=== PATIENT | male | born 1975 | race Caucasian/White ===

== ENCOUNTER 2017-03-01 18:43 | Emergency (ER) | payer OTHER ==
[~2017-03-01] VITALS: Ht 170.2 cm; Wt 90.5 kg
[2017-03-01 18:45] VITALS: BP 135/91
[2017-03-02] MEDS ORDERED: SING10TA32 PO (07:12)
[2017-03-02] MEDS ORDERED: ZYRT10CA PO (07:12)
[2017-03-02] MEDS ORDERED: NEXI20CA PO (07:12)
[2017-03-02] MEDS ORDERED: LEVO750T13 PO (13:18)
== END 2017-03-01 18:56 | disposition left against medical advice (07) ==
LOC: M ED 18:43
DX: Z53.21 Procedure and treatment not carried out due to patient leaving prior to being seen by health care provider (principal)

== ENCOUNTER 2017-03-02 07:02 | Emergency (ER) | payer OTHER ==
[~2017-03-02] VITALS: Ht 170.2 cm; Wt 90.5 kg
[2017-03-02] MEDS ORDERED: NEXI20CA PO (07:12)
[2017-03-02] MEDS ORDERED: ZYRT10CA PO (07:12)
[2017-03-02] MEDS ORDERED: SING10TA32 PO (07:12)
[2017-03-02] MEDS ORDERED: MORPHINE 4 MG/ML 1ML SYRINGE IV PRN (08:00)
[2017-03-02] MEDS ORDERED: NS 1,000 ML IV ONE (08:00)
[2017-03-02] MEDS ORDERED: ONDANSETRON 4MG/2ML VIAL (J2405) IV ONE (08:00)
[2017-03-02 08:16] LABS: BASO % 0.2 % (0.0-1.0); EOS % 0.2 % (0.0-3.0); IMMATURE GRANULOCYTE % 0.3 % (0-0); LYMPH # 0.7 10^3/uL (1.5-4.5); LYMPH % 12.4 % (24.0-44.0); MEAN CORPUSCULAR HEMOGLOBIN 28.8 pg (27.0-33.0); MEAN CORPUSCULAR HGB CONC 34.4 g/dl (32.0-36.5); MEAN CORPUSCULAR VOLUME 83.7 fl (80.0-96.0); MONO # 0.6 10^3/uL (0.0-0.8); MONO % 10.5 % (0.0-5.0); NEUTROPHILS # 4.4 10^3/uL (1.8-7.7); NEUTROPHILS % 76.4 % (36.0-66.0); PLATELET COUNT, AUTOMATED 164 10^3/uL (150-450); RED CELL DISTRIBUTION WIDTH 12.2 % (11.5-14.5); WHITE BLOOD COUNT 5.8 10^3/uL (4.0-10.0)
[2017-03-02] MEDS ORDERED: GASTROGRAFIN SOLUTION 30ML PO ONE (08:25)
[2017-03-02] MEDS ORDERED: GASTROGRAFIN SOLUTION 30ML (Q9963) PO ONE (08:55)
[2017-03-02 09:24] LABS: ALBUMIN 3.5 GM/DL (3.2-5.2); ALBUMIN/GLOBULIN RATIO 1.06 (1.00-1.93); ALKALINE PHOSPHATASE 46 U/L (45-117); ALT/SGPT 102 U/L (12-78); ANION GAP 10 MEQ/L (8-16); AST/SGOT 47 U/L (15-37); BILIRUBIN,DIRECT 0.2 MG/DL (0.0-0.2); BILIRUBIN,TOTAL 0.6 MG/DL (0.2-1.0); BLOOD UREA NITROGEN 12 MG/DL (7-18); CALCIUM LEVEL 8.6 MG/DL (8.5-10.1); CARBON DIOXIDE LEVEL 25 MEQ/L (21-32); CHLORIDE LEVEL 105 MEQ/L (98-107); CREATININE FOR GFR 1.02 MG/DL (0.70-1.30); GLOMERULAR FILTRATION RATE > 60.0 (>60); GLUCOSE, FASTING 110 MG/DL (70-105); POTASSIUM SERUM 3.5 MEQ/L (3.5-5.1); SODIUM LEVEL 140 MEQ/L (136-145); TOTAL PROTEIN 6.8 GM/DL (6.4-8.2)
[2017-03-02] MEDS ORDERED: ISOVUE-370 76% 100ML VIAL (Q9967) As Ordered ONE (09:42)
[2017-03-02] MEDS ORDERED: ACETAMINOPHEN TAB 650MG DOSE (2X325MG) PO ONE (09:45)
--- NOTE | 2017-03-02 10:13 | REP ---
CT of the abdomen and pelvis with IV and oral contrast: Comparison is 02/17/2015. The visualized lung vitale are unremarkable. The hepatic parenchyma is hypodense compatible with hepato steatosis. The gallbladder, pancreas and spleen are unremarkable. The adrenals, kidneys and abdominal aorta are unremarkable. There is no bowel distension or obstruction. There is diffuse wall thickening of the entire colon compatible with colitis in the appropriate clinical setting. There is no ascites. Pelvis: The bladder is unremarkable. There are prostatic of this. The prostate is moderately enlarged. There is no adenopathy or ascites. Impression: Wall thickening of the entire colon compatible with colitis in the appropriate clinical setting. Otherwise, negative CT of the abdomen pelvis except for hepato steatosis. Signed by Faizan Salas MD 03/02/2017 10:04 A
[2017-03-02] MEDS ORDERED: LEVO750T13 PO (13:18)
[2017-03-02] MEDS ORDERED: IBUPROFEN 600 MG TAB PO ONE (13:30)
[2017-03-02] MEDS ORDERED: LevoFLOXacin 750 MG TABLET PO ONE (13:30)
[2017-03-02 13:34] VITALS: BP 132/87
== END 2017-03-02 13:35 | disposition home or self-care (01) ==
LOC: M ED 07:02
DX: A09 Infectious gastroenteritis and colitis, unspecified (principal); K21.9 Gastro-esophageal reflux disease without esophagitis; G47.30 Sleep apnea, unspecified; Z79.899 Other long term (current) drug therapy
CPT/HCPCS: 74177; 80048; 80076; 81001; 83690; 85025; 87086; 87507; 93041; 96361; 96374; 96375; 99284; J2405; Q9963; Q9967

== ENCOUNTER → 2019-06-05 | Outpatient (REF) | payer OTHER ==
[~2019-06-05] MED LIST: LEVO750T13 PO; NEXI20CA PO; SING10TA32 PO; ZYRT10CA PO
== END ==
LOC: M LAB REF 10:26
PROVIDERS: ATTEND Nurse Practitioner Adult Health
DX: I10 Essential (primary) hypertension (principal)

== ENCOUNTER → 2019-06-05 | Outpatient (CLI) | payer OTHER ==
[2019-06-05 19:05] LABS: HEMATOCRIT 45.9 % (42.0-52.0); MEAN CORPUSCULAR HEMOGLOBIN 28.3 pg (27.0-33.0); MEAN CORPUSCULAR HGB CONC 32.7 g/dl (32.0-36.5); MEAN CORPUSCULAR VOLUME 86.6 fl (80.0-96.0); PLATELET COUNT, AUTOMATED 264 10^3/uL (150-450); WHITE BLOOD COUNT 6.6 10^3/uL (4.0-10.0)
[2019-06-05 19:30] LABS: ALBUMIN 4.2 GM/DL (3.2-5.2); ALT/SGPT 73 U/L (12-78); BILIRUBIN,TOTAL 0.5 MG/DL (0.2-1.0); BLOOD UREA NITROGEN 14 MG/DL (7-18); CARBON DIOXIDE LEVEL 32 MEQ/L (21-32); CHLORIDE LEVEL 104 MEQ/L (98-107); GLOMERULAR FILTRATION RATE > 60.0 (>60); GLUCOSE, FASTING 81 MG/DL (70-100); POTASSIUM SERUM 4.3 MEQ/L (3.5-5.1); SODIUM LEVEL 140 MEQ/L (136-145); TOTAL PROTEIN 7.2 GM/DL (6.4-8.2)
== END ==
LOC: M WUC 15:16
PROVIDERS: ATTEND Nurse Practitioner Family
DX: R03.0 Elevated blood-pressure reading, without diagnosis of hypertension (principal); I10 Essential (primary) hypertension

== ENCOUNTER → 2021-08-27 | Outpatient (REF) | payer OTHER | LOC: M LAB REF 11:48 | PROVIDERS: ATTEND Physician Assistant Medical | DX: R05.9 Cough, unspecified (principal); R50.9 Fever, unspecified ==

== ENCOUNTER 2022-02-19 11:57 | Emergency (ER) | payer OTHER ==
[~2022-02-19] VITALS: Ht 170.2 cm; Wt 88.6 kg
[~2022-02-19 11:57] MED LIST changes: +LEVO1TAB40 PO; -LEVO750T13 PO
[2022-02-19 13:15] LABS: BASO % 0.3 % (0.0-1.0); EOS # 0.1 10^3/uL (0.0-0.5); EOS % 0.6 % (0.0-3.0); HEMATOCRIT 43.4 % (42.0-52.0); HEMOGLOBIN 14.8 g/dl (13.5-17.5); LYMPH # 1.3 10^3/uL (1.5-5.0); LYMPH % 13.5 % (24.0-44.0); MEAN CORPUSCULAR HEMOGLOBIN 29.1 pg (27.0-33.0); MEAN CORPUSCULAR HGB CONC 34.1 g/dl (32.0-36.5); MEAN CORPUSCULAR VOLUME 85.4 fl (80.0-96.0); MONO # 0.9 10^3/uL (0.0-0.8); MONO % 9.1 % (2.0-8.0); NEUTROPHILS # 7.2 10^3/uL (1.5-8.5); NEUTROPHILS % 76.2 % (36.0-66.0); PLATELET COUNT, AUTOMATED 235 10^3/uL (150-450); RED BLOOD COUNT 5.08 10^6/uL (4.30-6.10); WHITE BLOOD COUNT 9.4 10^3/uL (4.0-10.0)
[2022-02-19] MEDS ORDERED: LISI20TA33 PO (13:20)
[2022-02-19] MEDS ORDERED: HYDR12.55 PO (13:20)
[2022-02-19] MEDS ORDERED: MORPHINE 4 MG/ML 1ML VIAL/SYRINGE IV ONE (13:50)
[2022-02-19 13:55] LABS: BLOOD UREA NITROGEN 18 MG/DL (7-18); CARBON DIOXIDE LEVEL 25 MEQ/L (21-32); CHLORIDE LEVEL 104 MEQ/L (98-107); CREATININE FOR GFR 1.12 MG/DL (0.70-1.30); GLOMERULAR FILTRATION RATE > 60.0 (>60); GLUCOSE, FASTING 91 MG/DL (70-100); POTASSIUM SERUM 4.2 MEQ/L (3.5-5.1); SODIUM LEVEL 139 MEQ/L (136-145)
[2022-02-19 13:56] LABS: CALCIUM LEVEL 9.4 MG/DL (8.5-10.1)
[2022-02-19 14:00] LABS: CPK CREATINE PHOSPHOKINASE 94 U/L (39-308)
[2022-02-19 14:28] LABS: ALBUMIN 4.2 GM/DL (3.2-5.2); ALT/SGPT 57 U/L (12-78); BILIRUBIN,DIRECT 0.1 MG/DL (0.0-0.2); BILIRUBIN,TOTAL 0.7 MG/DL (0.2-1.0); LIPASE 129 U/L (73-393); TOTAL PROTEIN 7.6 GM/DL (6.4-8.2)
[2022-02-19 14:30] VITALS: BP 121/72
[2022-02-19] MEDS ORDERED: KETOROLAC 30 MG/ML 1ML VIAL IV ONE (14:45)
[2022-02-19] MEDS ORDERED: ISOVUE-370 76% 100ML VIAL As Ordered ONE (14:56)
[2022-02-19] MEDS ORDERED: KETO10TAB PO (16:01)
== END 2022-02-19 16:16 | disposition home or self-care (01) ==
LOC: M ED 11:57 → EDBD 11:57 → M ED 16:16
DX: R07.89 Other chest pain (principal); K21.9 Gastro-esophageal reflux disease without esophagitis; G47.30 Sleep apnea, unspecified; K76.0 Fatty (change of) liver, not elsewhere classified; Z79.899 Other long term (current) drug therapy
CPT/HCPCS: 71045; 71275; 80048; 80076; 82550; 83690; 84484; 85025; 93005; 93041; 94760; 96374; 96375; 99285; J1885; J2270; Q9967

== ENCOUNTER → 2023-06-15 | Outpatient (CLI) | payer OTHER ==
[~2023-06-15] MED LIST changes: +HYDR12.55 PO; +KETO10TAB PO; +LISI20TA33 PO; +MONT-5 PO; -SING10TA32 PO
== END ==
LOC: M PLAIMG 08:10
PROVIDERS: ATTEND Nurse Practitioner Family
DX: K42.9 Umbilical hernia without obstruction or gangrene (principal)

== ENCOUNTER 2023-08-06 10:03 | Day surgery (SDC) | payer OTHER ==
[~2023-08-06] VITALS: Ht 170.2 cm; Wt 89.8 kg
[~2023-08-06 10:03] MED LIST changes: +AMLO1TAB24 PO; +CETI10CH PO; +ESOM1CAP5 PO; +MELO15TA28 PO
[2023-08-06] MEDS: NS 1,000 ML IV ONE (11:09)
[2023-08-06] MEDS ORDERED: propofoL 200 MG/20 ML VIAL As Ordered ONE (11:21)
[2023-08-06 12:20] VITALS: BP 148/85; TEMP 96.4; O2SAT 98
== END 2023-08-06 12:23 | disposition home or self-care (01) ==
LOC: M OPP 10:03
PROVIDERS: ATTEND Internal Medicine Gastroenterology
DX: R93.3 Abnormal findings on diagnostic imaging of other parts of digestive tract (principal); I10 Essential (primary) hypertension; G47.30 Sleep apnea, unspecified; Z79.1 Long term (current) use of non-steroidal anti-inflammatories (NSAID); Z79.51 Long term (current) use of inhaled steroids; Z79.899 Other long term (current) drug therapy

== ENCOUNTER → 2025-01-23 | Outpatient (REF) | payer OTHER ==
[~2025-01-23] MED LIST changes: +ESOM1CAP20 PO; -ESOM1CAP5 PO
== END ==
LOC: M LAB REF 17:51
PROVIDERS: ATTEND Physician Assistant Medical
DX: R53.83 Other fatigue (principal)